=== PATIENT | female | born 1990 | race Asian ===

== ENCOUNTER → 2016-11-20 | Outpatient (CLI) | payer OTHER ==
[~2016-11-20] MED LIST: IOPAMIDOL (ISOVUE-300) 100 ML BTL IV ONE
--- NOTE | 2016-11-20 18:43 | CT ---
Contrast Enhanced CT Scan of the Abdomen and Pelvis Clinical History: 26-year-old female who has had right lower quadrant pain since last night. Rule ou t appendicitis. Technique: Neither oral nor retrograde rectal contrast was administered. Following the uncomplicated intravenous administration of 85 mL Isovue-300, a multidetector helical CT scan was obtained from the lung bases inferiorly through the proximal femora, with images reformatted at 5.00 and 1.25 mm incre ments, and reviewed at a variety of window and level settings. Parasagittal and paracoronal reconstru cted images are reviewed on the workstation. The DFOV is 41.3 cm. Dose reduction techniques were util ized. Comparison Studies: Pelvic sonography, and limited right lower quadrant abdominal sonography from [facility] this afternoon. Findings: Contrast-Enhanced CT Scan of the Abdomen: The lung bases are clear. The visualized cardiac chambers a nd pericardium are unremarkable. The liver, spleen, gallbladder, bile ducts, pancreas, adrenal glands , and the kidneys are normal in appearance. The aorta tapers normally, and the IVC is normal in calib er. There is no ascites or free air. There is some intraluminal fluid seen in portions of the small b owel, however there is no mechanical obstruction. There is nzcj-na-ejrhltsn constipation. There is no ascites or pneumoperitoneum. There are some tiny right lower quadrant mesenteric lymph nodes seen on series 601, image 19-20, and the normal-appearing appendix is noted to arise off the caudal margin o f the cecum and extend and drape over the right psoas muscle, and is seen on coronal series 601, imag es 16-19 and also on axial series 3, images 180-203. There is no pericecal inflammation. There is a s mall hyperdense structure measuring 8 mm in the right lower quadrant, however this appears to reside along the anterolateral margin of the cecum, and is remote from the appendix (which is seen more infe rior to this area). This could potentially represent a fecalith or a tiny calcified mesenteric lymph node. It is noted on series 3, images 181-185, and likely corresponds to the small echogenic focus se en on the sonogram. Contrast-Enhanced CT Scan of the Pelvis: The bladder has a normal contour. The uterus is midline. The re is a tiny amount of free fluid in the posterior cul-de-sac on sagittal series 602, image 105 and a xial series 2, image 63. The ovaries appear normal. There is no adnexal mass. There is moderate const ipation. There is no adenopathy. There is normal enhancement of the vasculature. The subcutaneous tis sues are normal in appearance. Skeletal System: Normal. Impression: 1. Normal CT appearance the appendix. 2. Query low-grade right lower quadrant mesenteric adenitis. 3. Nonspecific intraluminal fluid within portions of small bowel with no mechanical obstruction. 4. Tiny amount of free fluid in the right pelvic cul-de-sac. 5. Hreh-or-uzjyhqho constipation. Results were discussed with Dr. Robert Aguilera. A test result has been communicated to a licensed care provider and documented in the [employer] Critical Result system on 11/20/2016 18:33, Message ID [id number].
== END ==
LOC: FIMAGING 16:21
PROVIDERS: ATTEND Emergency Medicine
DX: R93.5 Abnormal findings on diagnostic imaging of other abdominal regions, including retroperitoneum (principal); K59.00 Constipation, unspecified
CPT/HCPCS: Q9967

== ENCOUNTER → 2016-11-20 | Outpatient (CLI) | payer OTHER ==
--- NOTE | 2016-11-20 15:19 | US ---
Ultrasound Pelvis Complete (Transabdominal and Endovaginal) History: Pelvic and right lower quadrant pain in a 26-year-old female. Technique: Transabdominal and endovaginal ultrasound images were obtained. Endovaginal images obtain ed for better evaluation of the uterine myometrium and adnexa. Findings: The uterus is normal in size and measures 5.9 x 2.9 x 3.8 cm. The endometrial measures 0.6 cm in thickness. No masses are seen. The ovaries are normal in size. The right ovary measures 4.6 x 1 .9 x 3.8 cm and the left ovary measures 3.8 x 1.7 x 2.1 cm. Multiple follicular cysts are seen bilate rally. No adnexal masses. No free fluid is identified in the pelvis. Color and pulsed Doppler flow is identified in both ovaries . Impression: Normal pelvic ultrasound, specifically, a source for right lower quadrant pain is not vikash ntified. A preliminary report was called to [facility].
--- NOTE | 2016-11-20 15:30 | US ---
Ultrasound (Limited) Right Lower Quadrant, Attention Appendix Reason for examination: Right lower quadrant pain. Technique: Longitudinal and transverse images are obtained, with attention to the right lower quadra nt. Graded compression is also employed. Color Doppler evaluation is employed for assessment of vas cularity. Findings: There is a rounded area, measuring 8 mm in diameter, showing posterior acoustic shadowing and hyperemia. This is indeterminate for an appendicolith. A definite dilated, inflamed appendix is not visualized. There is a trace of free fluid seen in the region. The patient is symptomatic to c ompression in this region. Impression: Findings, as detailed above, indeterminate for acute appendicitis, with CT suggested for further evaluation, as clinically directed. A preliminary report was called to [facility].
== END ==
LOC: BMCIMAGING 13:40
PROVIDERS: ATTEND Emergency Medicine
DX: R93.5 Abnormal findings on diagnostic imaging of other abdominal regions, including retroperitoneum (principal); R68.89 Other general symptoms and signs